=== PATIENT | female | born 1960 | race African-American/Black ===

== ENCOUNTER 2019-10-23 17:21 | Inpatient (IN) | payer OTHER, MEDICAID ==
[~2019-10-23] VITALS: Ht 167.6 cm; Wt 75.3 kg
[~2019-10-23 17:21] MED LIST: TRAMADOL
[2019-10-23 18:12] LABS: BASOPHILS % 1.1 % (0.0-2.0); EOSINOPHILS % 0.9 % (0.0-5.0); HEMATOCRIT. 41.4 % (36.0-48.0); HEMOGLOBIN. 14.2 g/dL (12.0-16.0); LYMPHOCYTES % 33.7 % (20.0-50.0); MEAN CORPUSCULAR HEMOGLOBIN 29.7 pg (28.0-32.0); MEAN CORPUSCULAR VOLUME 86.4 fL (81.0-99.0); MEAN PLATELET VOLUME 10.7 fl (7.4-10.4); NEUTROPHILS % 55.3 % (40.0-76.0); PLATELET 185 x1000/uL (130-400); RED BLOOD CELL COUNT 4.79 mill/uL (4.2-5.4); RED CELL DISTRIBUTION WIDTH 14.9 % (11.6-14.6)
[2019-10-23 18:18] LABS: CHLORIDE 108 mEq/L (98-107)
[2019-10-23 18:20] LABS: ETHANOL BLOOD < 10 mg/dL; PROTHROMBIN TIME 10.5 sec (9.6-11.0)
[2019-10-23] MEDS ORDERED: ASPIRIN 325MG EC TABLET PO ONE (18:45)
[2019-10-23] MEDS ORDERED: CLOPIDOGREL 75MG TABLET PO ONE (18:45)
[2019-10-23 21:35] LABS: CLARITY URINE CLEAR (CLEAR); COLOR URINE YELLOW (YELLOW); KETONES URINE NEGATIVE (NEGATIVE); LEUKOCYTE ESTERASE URINE TRACE (NEGATIVE); NITRITE URINE NEGATIVE (NEGATIVE); OCCULT BLOOD URINE NEGATIVE (NEGATIVE); PH URINE 6.5 (4.5-8.0); PROTEIN URINE NEGATIVE (NEGATIVE); SPECIFIC GRAVITY URINE 1.012 (1.005-1.030); UROBILINOGEN URINE 0.2 E.U./dL (0.2-1.0)
[2019-10-23 21:48] LABS: *AMPHETAMINES SCREEN URINE NEGATIVE (NEGATIVE); *BARBITURATES SCREEN URINE NEGATIVE (NEGATIVE); CANNABINOID URINE SCREEN NEGATIVE (NEGATIVE)
[2019-10-23 21:49] LABS: *BENZODIAZEPINES SCREEN URINE NEGATIVE (NEGATIVE); *COCAINE SCREEN URINE NEGATIVE (NEGATIVE); METHADONE URINE SCREEN NEGATIVE (NEGATIVE); OPIATES URINE SCREEN NEGATIVE (NEGATIVE); PHENCYCLIDINE URINE SCREEN NEGATIVE (NEGATIVE)
[2019-10-23] MEDS ORDERED: ACETAMINOPHEN 325MG TABLET PO PRN (23:30)
[2019-10-23] MEDS ORDERED: ZOLPIDEM TARTRATE 5MG TABLET PO PRN (23:30)
[2019-10-23] MEDS ORDERED: DOCUSATE SODIUM 100MG CAPSULE PO PRN (23:30)
[2019-10-24] VITALS (7 sets, daily range): BP systolic 144–170; BP diastolic 79–96
[2019-10-24] MEDS: SODIUM CHLORIDE 0.9% INJ 3ML FLUSH IVF SCH ×3 (05:37→21:12)
[2019-10-24 06:33] LABS: BASOPHILS % 0.8 % (0.0-2.0); EOSINOPHILS % 0.8 % (0.0-5.0); HEMATOCRIT. 40.8 % (36.0-48.0); MEAN CORPUSCULAR HEMOGLOBIN 29.8 pg (28.0-32.0); MEAN CORPUSCULAR VOLUME 86.7 fL (81.0-99.0); MEAN PLATELET VOLUME 11.4 fl (7.4-10.4); NEUTROPHILS % 58.4 % (40.0-76.0); PLATELET 182 x1000/uL (130-400); RED BLOOD CELL COUNT 4.71 mill/uL (4.2-5.4); RED CELL DISTRIBUTION WIDTH 14.9 % (11.6-14.6)
[2019-10-24 06:56] LABS: CHLORIDE 108 mEq/L (98-107)
[2019-10-24 07:06] LABS: HDL CHOLESTEROL 80 mg/dL (40-59); LDL CHOLESTEROL 83 mg/dL (5-100)
[2019-10-24] MEDS: METOPROLOL TARTRATE 50MG TABLET PO SCH ×2 (09:00→21:00)
[2019-10-24] MEDS ORDERED: ASPIRIN 325MG EC TABLET PO SCH (09:00)
[2019-10-24] MEDS: ENOXAPARIN 40MG/0.4ML SYR SUBCUT SCH (09:30)
[2019-10-24] MEDS: CLOPIDOGREL 75MG TABLET PO SCH (17:51)
[2019-10-24] MEDS: ATORVASTATIN CALCIUM 40MG TABLET PO SCH (21:12)
[2019-10-25] VITALS (7 sets, daily range): BP systolic 143–199; BP diastolic 72–104
[2019-10-25] MEDS: SODIUM CHLORIDE 0.9% INJ 3ML FLUSH IVF SCH ×3 (06:21→21:09)
[2019-10-25 07:47] LABS: HEMATOCRIT 41.5 % (36.0-48.0); HEMOGLOBIN 14.2 g/dL (12.0-16.0); MEAN CORPUSCULAR HEMOGLOBIN 29.5 pg (28.0-32.0); MEAN CORPUSCULAR VOLUME 86.3 fL (81.0-99.0); PLATELET 193 x1000/uL (130-400); RED BLOOD CELL COUNT 4.81 mill/uL (4.2-5.4)
[2019-10-25 08:00] LABS: CHLORIDE 109 mEq/L (98-107)
[2019-10-25] MEDS: ENOXAPARIN 40MG/0.4ML SYR SUBCUT SCH (09:16)
[2019-10-25] MEDS: ASPIRIN 81MG TABLET PO SCH (09:16)
[2019-10-25] MEDS: CLOPIDOGREL 75MG TABLET PO SCH (09:16)
[2019-10-25] MEDS: METOPROLOL TARTRATE 50MG TABLET PO SCH ×2 (09:17→21:00)
[2019-10-25] MEDS: NITROGLYCERIN OINT 1GM/INCH UDPKT TD PRN ×2 (12:23→20:14)
[2019-10-25] MEDS: ATORVASTATIN CALCIUM 40MG TABLET PO SCH (20:13)
[2019-10-26] VITALS: BP 138/51
[2019-10-26 04:00] VITALS: BP 148/92
[2019-10-26] MEDS: SODIUM CHLORIDE 0.9% INJ 3ML FLUSH IVF SCH (05:45)
[2019-10-26 08:00] VITALS: BP 141/77
[2019-10-26] MEDS: METOPROLOL TARTRATE 50MG TABLET PO SCH (09:00)
[2019-10-26] MEDS: CLOPIDOGREL 75MG TABLET PO SCH (09:10)
[2019-10-26] MEDS: ENOXAPARIN 40MG/0.4ML SYR SUBCUT SCH (09:10)
[2019-10-26] MEDS: ASPIRIN 81MG TABLET PO SCH (09:10)
[2019-10-26 11:29] VITALS: BP 152/94
[2019-10-26 11:49] VITALS: BP 152/94
[2019-10-28 13:06] LABS: DRVVT LA 36.6 sec (0.0-47.0); LUPUS ANTICOAG INTERPRETATION Comment: (.); PTT-LA 47.5 sec (0.0-51.9)
== END 2019-10-26 12:00 | disposition home or self-care (01) | DRG 65 ==
LOC: ER 17:21 → 5EST 20:42 → EDBEDREQTM 20:46 → EDBEDREQ 20:46 → ENRESERV 21:21
PROVIDERS: ADMIT Ophthalmology; ATTEND Ophthalmology
DX: I63.9 Cerebral infarction, unspecified (principal); G81.94 Hemiplegia, unspecified affecting left nondominant side; E78.5 Hyperlipidemia, unspecified; I10 Essential (primary) hypertension; E78.00 Pure hypercholesterolemia, unspecified; G51.0 Bell's palsy; F17.210 Nicotine dependence, cigarettes, uncomplicated; I27.20 Pulmonary hypertension, unspecified; R00.1 Bradycardia, unspecified
CPT/HCPCS: 36415; 70551; 71045; 80048; 80053; 80061; 80305; 80320; 81003; 82962; 83036; 84443; 84484; 85025; 85027; 85613; 85732; 86147; 93005; 93306; 93880; 97116; 97162; 97166; 99291; J1650; G0480